=== PATIENT | female | born 1950 | race Caucasian/White ===

== ENCOUNTER 2018-07-05 13:00 | Outpatient (CLI) | payer OTHER ==
--- NOTE | 2018-07-05 13:52 | CT ---
CT Abdomen Pelvis WO Con History: [R 10.30 lower abdominal pain] Comparison: CT 2009 Findings: Lung bases are clear. No pericardial effusion. There is cholelithiasis. Numerous right renal hypodensities suggestive of cysts, although incompletely evaluated on this exami nation. They do appear to have slight interval enlargement from 2009. There is no nephro ureterolithiasis or hydroureteronephrosis. No secondary evidence of a recently pas sed stone. Likely an arcuate vessel calcification within the interpolar renal pelvis by both kidneys. No free intraperitoneal gas or fluid. No dilated loops of large or small bowel. Impression: 1. No nephro ureterolithiasis or hydroureteronephrosis. No secondary evidence of a recently passed st one. 2. No acute inflammatory process within the abdomen or pelvis. 3. Likely right renal cortical cysts. 4. Absence of the previously described adnexal mass.
== END 2018-07-05 13:01 | disposition home or self-care (01) ==
LOC: BICCT 13:00
PROVIDERS: ATTEND Pediatrics Sports Medicine
DX: R10.30 Lower abdominal pain, unspecified (principal)
CPT/HCPCS: 74176

== ENCOUNTER 2018-10-17 12:32 | Day surgery (SDC) | payer OTHER ==
[2018-10-16 09:42] VITALS: BMI 36.9
--- NOTE | 2018-10-16 10:56 | HP ---
HISTORY OF PRESENT ILLNESS: Amy Rice is a 67-year-old female followed by Dr. Carl Phan. She has been having intermittent pains in right upper quadrant, epigastrium with flank radiation and nausea for the several months. She had a bad episode in September. Ultrasound shows gallstones, normal bile duct caliber. Bilirubin minimally elevated at 1.4. Transaminases are normal. LABORATORY DATA: Clinical pathology lab, 09/10/2018, white count 5.7, hemoglobin 13, platelet count 186,000. TSH is normal. Hemoglobin A1c 5.6. Glucose 83, BUN 13, creatinine 1.02, sodium 143, potassium 4.2, triglycerides 133, cholesterol 146, bilirubin 1.4. GGT 23, normal. AST 36, normal. ALT 30, normal. IMAGING STUDIES: Ultrasound of the gallbladder and gallstones with normal bile duct caliber. CAT scan of the abdomen and pelvis, 07/05/2018, was normal. PAST SURGICAL HISTORY: Two , right oophorectomy, tubal ligation, vaginal biopsies. HABITS: Tobacco, none. Alcohol. MEDICATIONS: 1. Metoprolol 100 mg a day. 2. Calcium and magnesium supplement. 3. Meclizine 25 mg a day. 4. Zyrtec 10 mg a day. 5. Losartan daily. 6. Lovastatin daily. ALLERGIES: NONE. REVIEW OF SYSTEMS: Ten-point noncontributory. PHYSICAL EXAMINATION: VITAL SIGNS: Weight 248 pounds, height 5 feet 9 inches, blood pressure 145/58, heart rate 67, temperature 98.8 degrees. HEAD, EYES, EARS, NOSE, AND THROAT: Unremarkable. Sclerae nonicteric. LUNGS: Clear to auscultation. CARDIAC: Regular rate and rhythm. No murmur or gallop. ABDOMEN: Soft and nontender. Minimal tenderness in right upper quadrant with mild guarding. EXTREMITIES: Unremarkable. No ankle edema. ASSESSMENT: Cholecystitis, cholelithiasis, normal bile duct caliber, minimally elevated bilirubin. PLAN: Laparoscopic video cholecystectomy. Risks of infection, bleeding, reoperation, and procedure were discussed. Questions answered. Job ID: [id number]
[2018-10-17] MEDS ORDERED: Levofloxacin 500 mg/D5W 100 ml Premix Bag ONE (13:09)
[2018-10-17] MEDS ORDERED: Ketorolac Tromethamine 30 MG/ML VIAL ONE (13:09)
[2018-10-17] MEDS ORDERED: Bupivacaine HCl 0.5%/Epinephrine 1:200,000/PF 30 ml Vial ONE (13:16)
[2018-10-17] MEDS ORDERED: Fentanyl 100 MCG/2 ML VIAL ONE ×3 (13:23→14:55)
[2018-10-17] MEDS ORDERED: Lidocaine 2% Jelly 5 ML TUBE ONE (13:24)
[2018-10-17] MEDS ORDERED: Ondansetron PF 4 MG/2 ML Vial ONE (14:52)
--- NOTE | 2018-10-17 20:44 | OP ---
DATE OF PROCEDURE: 10/17/2018 PREOPERATIVE DIAGNOSES: Chronic cholecystitis, cholelithiasis, obesity. POSTOPERATIVE DIAGNOSES: Chronic cholecystitis, cholelithiasis, obesity. PROCEDURE PERFORMED: Laparoscopic video cholecystectomy. ANESTHESIA: General, local 0.5% Marcaine with epinephrine 30 mL. FINDINGS: Fatty liver, cholecystitis. DESCRIPTION OF PROCEDURE: The patient was taken to the operating room, under general anesthesia, abdomen was prepared with ChloraPrep and draped in routine fashion. A 0.5% Marcaine with epinephrine 30 mL of total volume used to infiltrate the skin and subcutaneous tissue about each port site. Supraumbilical incision was made. Pneumoperitoneum to 15 mmHg was obtained with a Veress needle, replaced with a 5 port, video laparoscope was inserted. Right subxiphoid incision was made and 11 port was placed. Right subcostal was incision was made at midclavicular entrance line, the 5 port was placed. The fundus of the gallbladder was grasped at the cephalad. Liver was still noted to be fatty. Infundibulum was grasped and reflected laterally. Cystic artery and duct were dissected free. Critical view was obtained. Cystic artery and duct were divided after double clipping them proximally. Gallbladder was dissected free from liver bed obtaining good hemostasis prior to division of the final peritoneal attachments. Gallbladder and contents were removed, submitted to Pathology. Good hemostasis was ensured with the cautery and clips. Irrigant and pneumoperitoneum were evacuated. All instruments were removed and all skin incisions were approximated with interrupted subdermal 4-0 Monocryl and [place] glue applied. Job ID: [id number]
== END 2018-10-17 18:39 | disposition home or self-care (01) ==
LOC: SDC 12:32
PROVIDERS: ATTEND Specialist
PROC: 0FT44ZZ Resection of Gallbladder, Percutaneous Endoscopic Approach (ICD-10-PCS; principal; 2018-10-17)
DX: K80.10 Calculus of gallbladder with chronic cholecystitis without obstruction (principal); E66.9 Obesity, unspecified; K76.0 Fatty (change of) liver, not elsewhere classified; E80.7 Disorder of bilirubin metabolism, unspecified; Z68.36 Body mass index [BMI] 36.0-36.9, adult; Z79.1 Long term (current) use of non-steroidal anti-inflammatories (NSAID); Z79.899 Other long term (current) drug therapy
CPT/HCPCS: 88304; 93005; 93010; J0131; J0670; J1885; J1956; J2405; J3010

== ENCOUNTER 2025-02-12 10:29 | Outpatient (CLI) | payer OTHER | END 2025-02-12 10:30 | disposition home or self-care (01) | LOC: SCSBT 10:29 | PROVIDERS: ATTEND Internal Medicine | DX: C50.211 Malignant neoplasm of upper-inner quadrant of right female breast (principal) | CPT/HCPCS: 77080 ==